=== PATIENT | male | born 1970 | race Caucasian/White ===

== ENCOUNTER 2017-09-14 15:36 | Emergency (ER) | payer MEDICARE, MEDICAID ==
[2017-09-14] MEDS ORDERED: NS 0.9% 1000 ML* 1,000 ML IV ONE (16:30)
[2017-09-14 17:08] LABS: ABS Basophils 0.1 10^3/ul (0-0.2); ABS Eosinophils 0.1 10^3/ul (0-0.6); ABS Monocytes 0.9 10^3/ul (0-0.8); ABS Neutrophils 4.6 10^3/ul (1.5-7.7); ABS Nucleated RBC 0 10^3/ul; Eosinophil % 1.6 % (0-6); Hematocrit 42 % (42-52); Hemoglobin 14.1 g/dl (14.0-18.0); Lymphocyte % 34.5 % (25-47); Mean Corpuscular HGB Conc 34 g/dl (31-36); Mean Corpuscular Hemoglobin 28 pg (27-31); Mean Corpuscular Volume 83 fL (80-94); Mean Platelet Volume 8.3 um3 (7.4-10.4); Nucleated Red Blood Cells % 0.1; Platelet Count 255 10^3/ul (150-450); Red Cell Distribution Width 15 % (10.5-15); White Blood Count 8.7 10^3/ul (3.5-10.8)
[2017-09-14 17:20] LABS: INR 0.86 (0.77-1.02)
[2017-09-14 17:21] LABS: EGFR Non-African American 79.2 (>60)
[2017-09-14] MEDS ORDERED: Iohexol 350* (CONTRAST) 500 ML MDV IV ONE (17:35)
--- NOTE | 2017-09-14 18:01 | RAD ---
INDICATION: 5 weeks RIGHT chest pain from the rib cage to the upper chest. Symptoms worse when lying down. Assess for PE. COMPARISON: March 25, 2007 chest radiograph. February 02, 2015 CT abdomen. TECHNIQUE: Multidetector CT images were obtained from the lung apices to the upper abdomen with 67 mL Omnipaque 350 IV contrast. Pulmonary angiogram protocol. Multiplanar reformation including with maximum intensity projection. REPORT: Motion artifact and minimal dependent subsegmental atelectasis. 8 mm maximum dimension wafer-shaped focus of pleural thickening along the RIGHT minor fissure without concern. 8 mm soft tissue density subpleural nodule at the superior segment of the RIGHT lower lobe. Negative for pleural effusions. 1.5 cm short axis infrahilar lymph node. 1.3 cm short axis RIGHT suprahilar lymph node. Additional 1.1 cm short axis RIGHT hilar lymph node. Negative for cardiomegaly or pericardial effusion. Normal diameter thoracic aorta without abnormality. No filling defects are identified from the main to the subsegmental pulmonary arteries to indicate presence of a pulmonary embolism. Limited images through the upper abdomen are remarkable for a few calcified granulomas at the liver. Negative for adrenal lesions. Negative for suspicious thoracic osseous lesions. IMPRESSION: 1. Negative for pulmonary embolism. 2. 8 mm pulmonary nodule at the superior segment of the RIGHT lower lobe concerning for a potential bronchogenic carcinoma. 3. RIGHT hilar and mediastinal lymphadenopathy suspicious for metastasis. 4. Correlate with clinical assessment and consider follow-up PET/CT or CT-guided lung biopsy.
[2017-09-14 18:28] LABS: Urine Appearance Clear; Urine Blood Negative (Negative); Urine Color Yellow; Urine Ketones Negative (Negative); Urine Protein Negative (Negative); Urine Specific Gravity 1.023 (1.010-1.030); Urine Urobilinogen Negative (Negative)
[2017-09-14 19:47] VITALS: BP 131/91
--- NOTE | 2017-09-14 20:20 | ED ---
Westley Cline Natalie, scribed for Mark Flower MD on 09/14/17 at 1631 . HPI Chest Pain - HPI Summary HPI Summary: The pt is a 47 y/o M presenting to the ED c/o right anterior and lateral chest pain starting five weeks ago, worsening last night. The pain is rated 9/10.The pain is aggravated occasionally by movement and lying down. The pain is alleviated by nothing. Pt additionally c/o headache. Pt denies hematuria, hematochezia, abd, back, or neck pain. He did not eat anything last night due to the pain. He was vomiting blood in - History of Current Complaint Chief Complaint: EDChestPainROMI Time Seen by Provider: 09/14/17 16:06 Hx Obtained From: Patient Onset/Duration: Started Weeks Ago - five weeks ago, Still Present, Worse Since - last night Initial Severity: Moderate Current Severity: Moderate Pain Intensity: 9 Pain Scale Used: 0-10 Numeric Chest Pain Location: Right Anterior, Right Lateral Chest Pain Radiates: No Aggravating Factor(s): Rest, Movement Alleviating Factor(s): Nothing Associated Signs and Symptoms: Positive: Chest Pain, Headaches, Other: - NEGATIVE: hematuria, hematochezia - Allergy/Home Medications Allergies/Adverse Reactions: Allergies Allergy/AdvReac Type Severity Reaction Status Date / Time No Known Allergies Allergy Verified 09/14/17 15:42 PMH/Surg Hx/FS Hx/Imm Hx Endocrine/Hematology History: Reports: Hx Anemia - PERNISCIOUS ANEMIA WHEN WAS 10 MONTHS OLD Denies: Hx Diabetes, Hx Thyroid Disease Cardiovascular History: Reports: Hx Hypertension - ??UNSURE Denies: Hx Congestive Heart Failure Respiratory History: Denies: Hx Asthma, Hx Chronic Obstructive Pulmonary Disease (COPD) GI History: Reports: Hx Gastroesophageal Reflux Disease - AT TIMES, Hx Hiatal Hernia, Other GI Disorders - occassional acid reflux Denies: Hx Ulcer Sensory History: Denies: Hx Contacts or Glasses, Hx Hearing Aid Opthamlomology History: Denies: Hx Contacts or Glasses Neurological History: Reports: Other Neuro Impairments/Disorders - ADD - Surgical History Surgery Procedure, Year, and Place: BLOOD INFUSION A 10 MONTH OLD WITH ANESTHESIA Hx Anesthesia Reactions: No - Immunization History Immunizations Up to Date: Unable to Obtain/Confirm Infectious Disease History: Denies: Hx Hepatitis, Hx Human Immunodeficiency Virus (HIV), Traveled Outside the [place] in Last 30 Days - Social History Alcohol Use: Occasionally Substance Use Type: Reports: None Smoking Status (MU): Heavy Every Day Tobacco Smoker Amount Used/How Often: OFF AND ON 06/20- PPD X 25 YEARS Have You Smoked in the Last Year: Yes Review of Systems Positive: Chest Pain Positive: Other - NEGATIVE: hematochezia. Negative: Abdominal Pain Negative: hematuria Positive: Other - NEGATIVE: back and neck pain Positive: Headache All Other Systems Reviewed And Are Negative: Yes Physical Exam Triage Information Reviewed: Yes Vital Signs On Initial Exam: Initial Vitals BP 150/119 09/14/17 15:48 Vital Signs Reviewed: Yes Appearance: Positive: Well-Appearing, No Pain Distress Skin: Positive: Warm, Skin Color Reflects Adequate Perfusion, Dry Head/Face: Positive: Normal Head/Face Inspection Eyes: Positive: EOMI, PETER ENT: Positive: Normal ENT inspection Neck: Positive: Supple, Nontender Respiratory/Lung Sounds: Positive: Clear to Auscultation, Breath Sounds Present , Other - tender to palpation in right low anterior and lateral chest, no ecchymosis or rash Cardiovascular: Positive: RRR Abdomen Description: Positive: Nontender, Soft Bowel Sounds: Positive: Present Musculoskeletal: Positive: Normal, Strength/ROM Intact Neurological: Positive: Normal, Sensory/Motor Intact, Alert, Oriented to Person Place, Time Psychiatric: Positive: Affect/Mood Appropriate Diagnostics - Vital Signs Vital Signs Pulse Resp BP Pulse Ox 09/14/17 15:59 91 18 98 09/14/17 15:49 113 19 98 09/14/17 15:48 150/119 - Laboratory Lab Results: Lab Results 09/14/17 09/14/17 09/14/17 Range/Units 16:52 16:52 16:52 WBC (3.5-10.8) 10^3/ul RBC (4.0-5.4) 10^6/ul Hgb (14.0-18.0) g/dl Hct (42-52) % MCV (80-94) fL MCH (27-31) pg MCHC (31-36) g/dl RDW (10.5-15) % Plt Count (150-450) 10^3/ul MPV (7.4-10.4) um3 Neut % (Auto) (38-83) % Lymph % (Auto) (25-47) % [place] % (Auto) (0-7) % Eos % (Auto) (0-6) % Baso % (Auto) (0-2) % Absolute Neuts (auto) (1.5-7.7) 10^3/ul Absolute Lymphs (auto) (1.0-4.8) 10^3/ul Absolute Monos (auto) (0-0.8) 10^3/ul Absolute Eos (auto) (0-0.6) 10^3/ul Absolute Basos (auto) (0-0.2) 10^3/ul Absolute Nucleated RBC 10^3/ul Nucleated RBC % INR (Anticoag Therapy) 0.86 (0.77-1.02) APTT 29.1 (26.0-36.3) seconds Sodium 139 (139-145) mmol/L Potassium 3.7 (3.5-5.0) mmol/L Chloride 106 (101-111) mmol/L Carbon Dioxide 27 (22-32) mmol/L Anion Gap 6 (2-11) mmol/L BUN 13 (6-24) mg/dL Creatinine 1.01 (0.67-1.17) mg/dL Est GFR ( Amer) 101.8 (>60) Est GFR (Non-Af Amer) 79.2 (>60) BUN/Creatinine Ratio 12.9 (8-20) Glucose 111 H (70-100) mg/dL Lactic Acid (0.5-2.0) mmol/L Calcium 9.5 (8.6-10.3) mg/dL Magnesium 2.0 (1.9-2.7) mg/dL Total Bilirubin 0.30 (0.2-1.0) mg/dL AST 15 (13-39) U/L ALT 16 (7-52) U/L Alkaline Phosphatase 69 (34-104) U/L Total Creatine Kinase 95 (10-223) U/L CK-MB (CK-2) 2.2 (0.6-6.3) ng/mL Troponin I 0.00 (<0.04) ng/mL C-Reactive Protein 2.37 (< 5.00) mg/L B-Natriuretic Peptide 29 ( - 100) pg/mL Total Protein 6.7 (6.4-8.9) g/dL Albumin 4.1 (3.2-5.2) g/dL Globulin 2.6 (2-4) g/dL Albumin/Globulin Ratio 1.6 (1-3) Lipase 26 (11.0-82.0) U/L TSH 1.15 (0.34-5.60) mcIU/mL Urine Color Urine Appearance Urine pH (5-9) Ur Specific [place] (1.010-1.030) Urine Protein (Negative) Urine Ketones (Negative) Urine Blood (Negative) Urine Nitrate (Negative) Urine Bilirubin (Negative) Urine Urobilinogen (Negative) Ur Leukocyte Esterase (Negative) Urine Glucose (Negative) 09/14/17 09/14/17 09/14/17 Range/Units 16:52 16:52 18:05 WBC 8.7 (3.5-10.8) 10^3/ul RBC 5.00 (4.0-5.4) 10^6/ul Hgb 14.1 (14.0-18.0) g/dl Hct 42 (42-52) % MCV 83 (80-94) fL MCH 28 (27-31) pg MCHC 34 (31-36) g/dl RDW 15 (10.5-15) % Plt Count 255 (150-450) 10^3/ul MPV 8.3 (7.4-10.4) um3 Neut % (Auto) 53.2 (38-83) % Lymph % (Auto) 34.5 (25-47) % [place] % (Auto) 10.0 H (0-7) % Eos % (Auto) 1.6 (0-6) % Baso % (Auto) 0.7 (0-2) % Absolute Neuts (auto) 4.6 (1.5-7.7) 10^3/ul Absolute Lymphs (auto) 3.0 (1.0-4.8) 10^3/ul Absolute Monos (auto) 0.9 H (0-0.8) 10^3/ul Absolute Eos (auto) 0.1 (0-0.6) 10^3/ul Absolute Basos (auto) 0.1 (0-0.2) 10^3/ul Absolute Nucleated RBC 0 10^3/ul Nucleated RBC % 0.1 INR (Anticoag Therapy) (0.77-1.02) APTT (26.0-36.3) seconds Sodium (139-145) mmol/L Potassium (3.5-5.0) mmol/L Chloride (101-111) mmol/L Carbon Dioxide (22-32) mmol/L Anion Gap (2-11) mmol/L BUN (6-24) mg/dL Creatinine (0.67-1.17) mg/dL Est GFR ( Amer) (>60) Est GFR (Non-Af Amer) (>60) BUN/Creatinine Ratio (8-20) Glucose (70-100) mg/dL Lactic Acid 1.1 (0.5-2.0) mmol/L Calcium (8.6-10.3) mg/dL Magnesium (1.9-2.7) mg/dL Total Bilirubin (0.2-1.0) mg/dL AST (13-39) U/L ALT (7-52) U/L Alkaline Phosphatase (34-104) U/L Total Creatine Kinase (10-223) U/L CK-MB (CK-2) (0.6-6.3) ng/mL Troponin I (<0.04) ng/mL C-Reactive Protein (< 5.00) mg/L B-Natriuretic Peptide ( - 100) pg/mL Total Protein (6.4-8.9) g/dL Albumin (3.2-5.2) g/dL Globulin (2-4) g/dL Albumin/Globulin Ratio (1-3) Lipase (11.0-82.0) U/L TSH (0.34-5.60) mcIU/mL Urine Color Yellow Urine Appearance Clear Urine pH 5.0 (5-9) Ur Specific [place] 1.023 (1.010-1.030) Urine Protein Negative (Negative) Urine Ketones Negative (Negative) Urine Blood Negative (Negative) Urine Nitrate Negative (Negative) Urine Bilirubin Negative (Negative) Urine Urobilinogen Negative (Negative) Ur Leukocyte Esterase Negative (Negative) Urine Glucose Negative (Negative) Result Diagrams: 09/14/17 16:52 09/14/17 16:52 Lab Statement: Any lab studies that have been ordered have been reviewed, and results considered in the medical decision making process. - CT CTA CT Interpretation: Positive (See Comments) - 1. Negative for pulmonary embolism. 2. 8 mm pulmonary nodule at the superior segment of the RIGHT lower lobe concerning for a potential bronchogenic carcinoma. 3. RIGHT hilar and mediastinal lymphadenopathy suspicious for metastasis. 4. Correlate with clinical assessment and consider follow-up PET/CT or CT-guided lung biopsy. ED physician has reviewed this report. CT Interpretation Completed By: Radiologist - EKG [id number] Cardiac Rate: NL EKG Rhythm: Sinus Rhythm - [address] Segment: Normal Ectopy: None Chest Pain Course/Dx - Course Course Of Treatment: Medications reviewed. BP noted and advised to follow up with PCP. DISCUSSED RESULT WITH THE PATIENT AND HIS FAMILY TO INCLUDE THE PULMONAY NODULE, CONCERN OF CANCER AND THE NEED FOR PROMPT FOLLOW UP. DISCUSSED WITH DR TELLES HEME/ONC. HER OFFICE WILL CONTACT HIM ON 09/16/17 FOR FOLLOW UP. - Diagnoses Provider Diagnoses: Elevated BP without diagnosis of hypertension, Pulmonary nodule, right, Chest pain Discharge - Sign-Out/Discharge Documenting (check all that apply): Discharge - Discharge Plan Condition: Stable Disposition: HOME Patient Education Materials: Chest Pain (ED), Pulmonary Nodules (ED) Referrals: Saundra Telles MD [Medical Doctor] - Adal Steiner RPA [Primary Care Provider] - Additional Instructions: YOUR CHEST CT SHOWED A PULMONARY NODULE THAT MAY BE CANCER. YOU NEED TO GET MORE TESTING SOON POSSIBLE TO DETERMINE WHAT THIS IS AND THE BEST WAY TO TREAT THIS. FOLLOW UP WITH YOUR PRIMARY CARE DOCTOR AND HEMATOLOGY/ONCOLOGY, DR TELLES. DR TELLES'S OFFICE WILL CALL YOU ON 09/16/17, TO ARRANGE FOLLOW UP. RETURN TO THE EMERGENCY DEPARTMENT FOR ANY WORSENING OF YOUR CONDITION OR QUESTIONS OR CONCERNS. YOUR BLOOD PRESSURE WAS ELEVATED TODAY; FOLLOW UP WITH YOUR PRIMARY CARE DOCTOR WITHIN ONE WEEK. - Billing Disposition and Condition Condition: STABLE Disposition: HOME The documentation as recorded by the Westley madera Natalie accurately reflects the service I personally performed and the decisions made by me, Mark Flower MD.
== END 2017-09-14 19:47 | disposition home or self-care (01) ==
LOC: ED 15:36
DX: R91.1 Solitary pulmonary nodule (principal); R03.0 Elevated blood-pressure reading, without diagnosis of hypertension; R07.9 Chest pain, unspecified; R51 Headache; F17.210 Nicotine dependence, cigarettes, uncomplicated
CPT/HCPCS: 36415; 71275; 80053; 81003; 82550; 82553; 83605; 83690; 83735; 83880; 84443; 84484; 85025; 85610; 85730; 86140; 93005; 99283; Q9967

== ENCOUNTER 2018-01-11 10:12 | Emergency (ER) | payer MEDICARE, MEDICAID ==
[2018-01-11 10:27] VITALS: BP 136/82
--- NOTE | 2018-01-11 10:34 | UC ---
Shoulder Pain HPI - HPI Summary HPI Summary: 47 yo male presents with RIGHT shoulder pain. 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 He felt a pull in his right shoulder and had immediate pain. This shoulder has been bothering him ever since. Decreased ROM. Has been taking tylenol and ibuprofen with no relief. Denies numbness or tingling. - History of Current Complaint Chief Complaint: UCUpperExtremity Stated Complaint: R SHOULDER COMPLAINT Time Seen by Provider: 01/11/18 10:33 Hx Obtained From: Patient Onset/Duration: Sudden Onset Timing: Constant Severity Initially: Severe Severity Currently: Severe Pain Intensity: 8 Pain Scale Used: 0-10 Numeric - Allergies/Home Medications Allergies/Adverse Reactions: Allergies Allergy/AdvReac Type Severity Reaction Status Date / Time No Known Allergies Allergy Verified 01/11/18 10:27 PMH/Surg Hx/FS Hx/Imm Hx - Additional Past Medical History Additional PMH: None - Surgical History Surgical History: Yes Surgery Procedure, Year, and Place: BLOOD INFUSION A 10 MONTH OLD WITH ANESTHESIA - Family History Known Family History: Positive: None - Social History Occupation: Employed Full-time Lives: With Family Alcohol Use: Rare Substance Use Type: None Smoking Status (MU): Former Smoker Type: Cigarettes Amount Used/How Often: OFF AND ON 06/20-1 PPD X 25 YEARS Length of Time of Smoking/Using Tobacco: since age 14 Have You Smoked in the Last Year: Yes When Did the Patient Quit Smoking/Using Tobacco: last week 01/04/18 Review of Systems Constitutional: Negative Skin: Negative Respiratory: Negative Cardiovascular: Negative Gastrointestinal: Negative Neurovascular: Negative Musculoskeletal: Other: - Pain right shoulder Neurological: Negative Psychological: Negative All Other Systems Reviewed And Are Negative: Yes Physical Exam - Summary Physical Exam Summary: GENERAL: NAD. WDWN. No pain distress. SKIN: No rashes, sores, lesions, or open wounds. NECK: Supple. NTTP. FROM CHEST: No accessory muscle use. Breathing comfortably and in no distress. CV: Pulses intact radial and ulnar. MSK: RIGHT shoulder: FROM, but pain >90deg flexion. NTTP. Strength 5/5. No edema or obvious bony deformities. Negative empty can, tong-collins, neer, o karen, and yergason tests. NEURO: Alert. Sensations intact hand and all fingers. PSYCH: Age appropriate behavior. Triage Information Reviewed: Yes Vital Signs: Initial Vital Signs Temp 99 F 01/11/18 10:20 Pulse 53 01/11/18 10:20 Resp 16 01/11/18 10:20 BP 136/82 01/11/18 10:20 Pulse Ox 97 01/11/18 10:20 Shoulder Course/Dx - Course Course Of Treatment: XR: IMPRESSION: MINOR GLENOHUMERAL OSTEOARTHRITIS. Suspect right shoulder strain vs RTC injury. Referral to physical therapy and sports medicine. - Differential Dx/Diagnosis Provider Diagnoses: Right shoulder pain Discharge - Sign-Out/Discharge Documenting (check all that apply): Patient Departure - Discharge Plan Condition: Good Disposition: HOME Forms: *Work Release Referrals: Delores Mata [Primary Care Provider] - [facility] [Provider Group] - As Soon As Possible Additional Instructions: If you develop a fever, shortness of breath, chest pain, new or worsening symptoms - please call your PCP or go to the ED. 1) Please follow up with Sports Medicine at the number below to schedule a follow up appointment 2) Please schedule with Physical therapy Per institutional requirements, I have reviewed the chart, however, I was not consulted specifically or made aware of this patient by the above midlevel provider. I did not personally evaluate, interact with , or disposition this patient. - Billing Disposition and Condition Condition: GOOD Disposition: Home
--- NOTE | 2018-01-11 11:06 | RAD ---
INDICATION: Right shoulder pain COMPARISON: None TECHNIQUE: AP, lateral, and oblique views were obtained. FINDINGS: There is no acute bony change. There is spurring about the inferior glenoid consistent with osteoarthritis. The soft tissues are intact. IMPRESSION: MINOR GLENOHUMERAL OSTEOARTHRITIS.
== END 2018-01-11 11:24 | disposition home or self-care (01) ==
LOC: UCEAST 10:12
DX: M25.511 Pain in right shoulder (principal); X50.0XXA Overexertion from strenuous movement or load, initial encounter; Y93.89 Activity, other specified; Y92.89 Other specified places as the place of occurrence of the external cause; Z87.891 Personal history of nicotine dependence
CPT/HCPCS: 99211; G0463

== ENCOUNTER 2019-06-27 13:18 | Emergency (ER) | payer MEDICARE, MEDICAID ==
--- OUTSIDE RECORDS SUMMARY | 2019-06-27 13:35 | XMS REPORT | Summary of Care ---
:1970 Author Organization [facility] Address [address] [facility] [place] [address] Care Team Providers Name Role Phone Martin Lora Primary Care Provider Reason for Visit Reason Comments Abdominal Pain L side comes and goes Suture / Staple Removal Encounter Details Date Type Department Care Team Description 06/01/2019 Office Visit [facility] Martin Lora Tobacco abuse ( Primary Dx); Practice C, DO Environmental allergies; [address] Laceration of skin of scalp, initial encounter; [address] Chest wall pain [phone] [facility] [phone] Allergies No Known Allergiesdocumented as of this encounter (statuses as of 06/01/2019) Medications Medication Sig Dispensed Refills Start Date End Date Status polyethylene glycol Take 17 g by 527 g 5 10/15/2013 Active (MIRALAX) Oral mouth DAILY. PowderIndications: Constipation nicotine transdermal Place 1 Patch 30 Patch 0 06/01/2019 Active patch-daily (NICODERM) onto skin DAILY. 21 MG/24HR Transdermal PATCH 24 HRIndications: Tobacco abuse documented as of this encounter (statuses as of 06/01/2019) Active Problems Problem Noted Date Ureteral stenosis, right 01/17/2015 Hematuria 01/17/2015 Epistaxis 08/10/2014 Constipation 10/15/2013 Plantar wart 02/06/2012 Sebaceous cyst 08/17/2011 Allergic rhinitis 08/17/2011 Tobacco dependency 06/20/2011 documented as of this encounter (statuses as of 06/01/2019) Resolved Problems Problem Noted Date Resolved Date Strain of forearm, right 09/29/2012 02/24/2013 Epistaxis 09/29/2012 02/24/2013 Acute sinusitis, unspecified 09/03/2012 02/24/2013 Tooth pain 06/25/2012 09/03/2012 Rectal bleeding 06/20/2011 08/17/2011 documented as of this encounter (statuses as of 06/01/2019) Immunizations Name Administration Dates Next Due TDAP Vaccine 05/25/2016 documented as of this encounter Social History Tobacco Use Types Packs/Day Years Used Date Current Some Day Smoker Cigarettes 0.5 Smokeless Tobacco: Never Used Alcohol Use Drinks/Week oz/Week Comments Yes 0-3 Standard drinks or equivalent 0.0 - 2.5 Sex Assigned at Date Recorded Not on file Job Start Date Occupation Industry Not on file Not on file Not on file Travel History Travel Start Travel End No recent travel history available. documented as of this encounter Last Filed Vital Signs Vital Sign Reading Time Taken Comments Blood Pressure 118/80 06/01/2019 8:21 AM EST Pulse 71 06/01/2019 8:21 AM EST Temperature 36.2 06/01/2019 8:21 AM EST C (97.1 F) Respiratory Rate - - Oxygen Saturation 98% 06/01/2019 8:21 AM EST Inhaled Oxygen Concentration - - Weight 80.7 kg (178 lb) 06/01/2019 8:21 AM EST Height 177.8 cm (5' 10") 06/01/2019 8:21 AM EST Body Mass Index 25.54 06/01/2019 8:21 AM EST documented in this encounter Progress Notes Martin Lora, DO - 06/01/2019 8:40 AM EST PATIENT: Dimas Torrez : 1970 DATE OF SERVICE: 06/01/2019 Chief Complaint Patient presents with Abdominal Pain L side comes and goes Suture / Staple Removal Subjective: The patient is a 48-y.o. male, seen in clinic today, June 01, 2019 , new patient to establish care, his provider left the practice. He has a number of concerns. He has occasional sinus symptoms and finds that over-the- counter allergy medications are very helpful. He would like to quit smoking. He is smoking approximately a pack a day. He has not had a cigarette this morning. He has a pain in his left flank for about 6 days. It feels like a needle and only lasts for a few minutes if that. Denies trauma. Denies bowel changes. Is not particularly painful he just thought he should noted. 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 He also had a laceration 4 days ago and was seen at [facility] ER for a few sutures. This is workers comp. CURRENT MEDICATIONS: Current Outpatient Medications Medication Sig nicotine transdermal patch-daily (NICODERM) 21 MG/24HR Transdermal PATCH [address] 1 Patch onto skin DAILY. polyethylene glycol (MIRALAX) Oral Powder Take 17 g by mouth DAILY. No current facility-administered medications for this visit. DRUG ALLERGIES: No Known Allergies Past Medical History: Diagnosis Date Acute sinusitis, unspecified 09/03/2012 Epistaxis 09/29/2012 Pernicious anemia found at infancy, had blood transfusions Rectal bleeding 06/20/2011 Strain of forearm, right 09/29/2012 Tooth pain 06/25/2012 Patient Active Problem List Diagnosis Tobacco dependency Sebaceous cyst Allergic rhinitis Plantar wart Constipation Epistaxis Ureteral stenosis, right Hematuria PHYSICAL EXAM: BP 118/80 Pulse 71 Temp 97.1 F (36.2 C) Ht 5' 10" (1.778 m) Wt 178 lb (80.7 kg) SpO2 98% BMI 25.54 kg/m2 Body mass index is 25.54 kg/m. General : Alert and oriented x 3. No acute distress. Good affect. Appropriate insight Heart : Regular rhythm and rate. Lungs : clear to auscultation bilaterally, negative wheezes,rales or rhonchi Extremities : negative clubbing, cyanosis or edema Skin: Laceration anterior scalp healing nicely Musculoskeletal: Minimal tenderness lateral rib 9/10 Abdomen: Soft nontender, negative hepatosplenomegaly ASSESSMENT:PLAN 1. Tobacco abuse - nicotine transdermal patch-daily (NICODERM) 21 MG/24HR Transdermal PATCH 24 HR ; Place 1 Patch [place] DAILY. Dispense: 30 Patch; Refill: 0 2. Environmental allergies Continue gavv-[id number] medications 3. Laceration of skin of scalp, initial encounter Healing well, patient will be seen in ER for suture removal, which is closer to his work. Patient informed this office does not do Worker's Comp. 4. Chest wall pain Appears musculoskeletal, very minimal symptoms. Observe Return in about 4 weeks (around 06/29/2019). Martin Lora DO 06/01/2019 08:45 This record contains sections created with voice recognition software. It has been electronically signed.Electronically signed by Martin Lora DO at 8:49 AM ESTdocumented in this encounter Plan of Treatment Health Maintenance Due Date Last Done Comments MEDICARE ANNUAL WELLNESS 1970 VISIT PNEUMOCOCCAL 0-64 YRS (1 of 1 1976 - PPSV23) DIABETES SCREENING 05/25/2017 05/25/2016 DEPRESSION SCREENING 01/06/2020 01/05/2019 INFLUENZA VACCINE (#1) 2020 Postponed from 02/15/2019 (Patient refused) LIPID DISORDER SCREENING 05/25/2021 05/25/2016, 02/12/2012 DTaP/Tdap/Td Vaccines (2 - 05/25/2026 05/25/2016 Tdap) HEPATITIS A IMMUNIZATION Aged Out No longer eligible based SERIES on patient's age to complete this topic HPV IMMUNIZATION SERIES Aged Out No longer eligible based on patient's age to complete this topic MENINGOCOCCAL VACCINE IMM Aged Out No longer eligible based on patient's age to complete this topic documented as of this encounter Results Not on filedocumented in this encounter Visit Diagnoses Diagnosis Tobacco abuse Tobacco use disorder Environmental allergies Allergic rhinitis, cause unspecified Laceration of skin of scalp, initial encounter Chest wall pain Painful respiration documented in this encounter Guarantor Name Account Type Relation to Date of Phone Billing Patient Address Dimas Torrez Personal/Family 1970 [address] (Home) [place], [place] [address] (Work) documented as of this encounter
--- NOTE | 2019-06-27 14:40 | ED ---
Headache - HPI Summary HPI Summary: Pt is a 48 y/o M presenting to the ED with a chief complaint of a headache. He states he had a concussion a couple of weeks ago from a tile falling on his head , and hes been having bad headaches ever since. He also reports some intermittent lightheadedness and neck pain. Denies visual changes or vomiting. - History Of Current Complaint Chief Complaint: EDHeadache Stated Complaint: HEADACHE FROM HEAD INJURY Time Seen by Provider: 06/27/19 14:23 Hx Obtained From: Patient Onset/Duration: Sudden Onset, Started weeks ago, Still Present Initially Headache Was: Moderate Currently Pain Is: Moderate Timing: Intermittent, Lasting:, Hours Character: Typical Headache Location of Headache: Diffuse Aggravating Factor: Nothing Allevating Factors: Nothing Associated Signs And Symptoms: Neck Pain - Allergies/Home Medications Allergies/Adverse Reactions: Allergies Allergy/AdvReac Type Severity Reaction Status Date / Time No Known Allergies Allergy Verified 06/27/19 13:24 PMH/Surg Hx/FS Hx/Imm Hx Previously Healthy: Yes Endocrine/Hematology History: Reports: Hx Anemia - PERNISCIOUS ANEMIA WHEN WAS 10 MONTHS OLD Denies: Hx Diabetes, Hx Thyroid Disease Cardiovascular History: Reports: Hx Hypertension - ??UNSURE Denies: Hx Congestive Heart Failure Respiratory History: Denies: Hx Asthma, Hx Chronic Obstructive Pulmonary Disease (COPD) GI History: Reports: Hx Gastroesophageal Reflux Disease - AT TIMES, Hx Hiatal Hernia, Other GI Disorders - occassional acid reflux Denies: Hx Ulcer Sensory History: Denies: Hx Contacts or Glasses, Hx Hearing Aid Opthamlomology History: Denies: Hx Contacts or Glasses Neurological History: Reports: Other Neuro Impairments/Disorders - ADD - Surgical History Surgery Procedure, Year, and Place: BLOOD INFUSION A 10 MONTH OLD WITH ANESTHESIA Hx Anesthesia Reactions: No Infectious Disease History: No Infectious Disease History: Denies: Hx Hepatitis, Hx Human Immunodeficiency Virus (HIV), Traveled Outside the [place] in Last 30 Days - Family History Known Family History: Negative: Renal Disease - Social History Alcohol Use: Occasionally Hx Substance Use: No Substance Use Type: Reports: None Hx Tobacco Use: Yes Smoking Status (MU): Former Smoker Type: Cigarettes Amount Used/How Often: OFF AND ON /-1 PPD X 25 YEARS Length of Time of Smoking/Using Tobacco: since age 14 Have You Smoked in the Last Year: Yes Review of Systems Eyes: Negative Negative: Vomiting Neurological: Other - lightheadedness Positive: Headache All Other Systems Reviewed And Are Negative: Yes Physical Exam - Summary Physical Exam Summary: Constitutional: Well-developed, Well-nourished, Alert. (-) Distressed Skin: Warm, Dry HENT: Normocephalic; Atraumatic Eyes: Conjunctiva normal Neck: Musculoskeletal ROM normal neck. (-) JVD, (-) Stridor, (-) Tracheal deviation Cardio: Rhythm regular, rate normal, Heart sounds normal; Intact distal pulses; The pedal pulses are 2+ and symmetric. Radial pulses are 2+ and symmetric. (-) Murmur Pulmonary/Chest wall: Effort normal. (-) Respiratory distress, (-) Wheezes, (-) Rales Abd: Soft, (-) tenderness, (-) Distension, (-) Guarding, (-) Rebound Musculoskeletal: (-) Edema Lymph: (-) Cervical adenopathy Neuro: Alert, Oriented x3. No focal deficits. No nystagmus. Nml gait. Psych: Mood and affect Normal Triage Information Reviewed: Yes Vital Signs On Initial Exam: Initial Vitals Temp Pulse Resp BP Pulse Ox 99.6 F 89 16 157/102 99 06/27/19 13:21 06/27/19 13:21 06/27/19 13:21 06/27/19 13:21 06/27/19 13:21 Vital Signs Reviewed: Yes Procedures - Sedation Patient Received Moderate/Deep Sedation with Procedure: No Diagnostics - Vital Signs Vital Signs Temp Pulse Resp BP Pulse Ox 06/27/19 13:21 99.6 F 89 16 157/102 99 - Laboratory Lab Statement: Any lab studies that have been ordered have been reviewed, and results considered in the medical decision making process. Headache Course/Dx - Course Course Of Treatment: Pt is a 48 y/o M presenting to the ED with a chief complaint of a headache. He states he had a concussion a couple of weeks ago from a tile falling on his head, and hes been having bad headaches ever since. He also reports some intermittent lightheadedness and neck pain. Denies visual changes or vomiting. Pt's physical exam is nml. D/t hx of CT brain from [facility] in [place], and sx being typical for post-concussive syndrome, repeat CT will not be done. Pt will be d/c'ed with instructions to f/u with Dr. Rod or another concussion clinic, as well as [facility]'s neurologists. He is agreeable with this plan. - Diagnoses Provider Diagnoses: Post concussive syndrome Discharge ED - Sign-Out/Discharge Documenting (check all that apply): Patient Departure - Discharge Plan Condition: Stable Disposition: HOME Patient Education Materials: Concussion (ED) Referrals: Delores Mata [Primary Care Provider] - Orlando Rod [Medical Doctor] - 3 Days Xochilt Ramírez MD [Medical Doctor] - Additional Instructions: Please follow up with Dr. Rod within the next 1-3 days. Also, call Dr. Ramírez's office to set up a neurology appointment for further evaluation of your head injury. Return to the emergency department with any new or worsening symptoms. - Attestation Statements Document Initiated by Scribe: Yes Documenting Scribe: Rosana Porter Provider For Whom Scribe is Documenting (Include Credential): Gama Knowles DO. Scribe Attestation: I, Rosana Porter, [email or web address] for Gama Knowles DO. on 06/27/19 at 1504. Status of Scribe Document: Ready
[2019-06-27 15:15] VITALS: BP 148/97
== END 2019-06-27 15:14 | disposition home or self-care (01) ==
LOC: ED 13:18
DX: F07.81 Postconcussional syndrome (principal); W20.8XXD Other cause of strike by thrown, projected or falling object, subsequent encounter; I10 Essential (primary) hypertension; K21.9 Gastro-esophageal reflux disease without esophagitis; Z87.891 Personal history of nicotine dependence
CPT/HCPCS: 99282